=== PATIENT | female | born 1980 | race Caucasian/White ===

== ENCOUNTER 2018-07-10 19:32 | Observation (INO) | payer OTHER ==
[~2018-07-10 19:32] MED LIST: ISOVUE-370 76%-LOCM 1 ML ONE
[2018-07-10] MEDS ORDERED: Morphine 4 MG/ML VIAL ONE ×2 (19:46→20:56)
[2018-07-10] MEDS ORDERED: Ondansetron PF 4 MG/2 ML Vial ONE (19:46)
[2018-07-10 20:10] LABS: #Basophils 0.1 thou/uL (0.0-0.2); #Eosinphils 0.1 thou/uL (0.0-0.7); #Monocytes 0.7 thou/uL (0.11-0.59); #Neutrophils 10.7 thou/uL (1.40-6.50); %Basophils 0.4 % (0.0-1.0); %Eosinophils 0.7 % (0.0-10.0); %Lymphocytes 8.2 % (21.0-51.0); %Monocytes 5.4 % (0.0-10.0); %Neutrophils 85.3 % (42.0-75.0); Hemoglobin 13.5 g/dL (12.0-16.0); Mean Corpuscular HGB CONC 34.1 g/dL (32.0-36.0); Mean Corpuscular Volume 93.8 fL (78.0-98.0); Mean Platelet Volume 8.7 fL (7.4-10.4); Platelet Count 220 thou/uL (130-400); RBC Distribution Width 10.8 % (11.5-14.5); Red Blood Cell (RBC) Count 4.21 mill/uL (4.20-5.40); White Blood Cell (WBC) Count 12.5 thou/uL (4.8-10.8)
[2018-07-10 20:17] LABS: BHCG - Serum Negative (NEGATIVE); Pregs Control Background? CLEAR/WHITE (CLR/WHITE); Pregs Control Bar Appear? YES (CONTROL BAR)
[2018-07-10 20:31] LABS: ALT (SGPT) 21 U/L (8-55); AST (SGOT) 22 U/L (5-34); Albumin 4.7 g/dL (3.5-5.0); Alkaline Phosphatase 69 U/L (40-150); Anion Gap 16 mmol/L (10-20); BUN (Urea Nitrogen) 10 mg/dL (7.0-18.7); Bilirubin, Total 0.3 mg/dL (0.2-1.2); Calc. Creatinine Clearance 0 mL/min (70-130); Calcium 9.5 mg/dL (7.8-10.44); Carbon Dioxide 25 mmol/L (22-29); Chloride 101 mmol/L (98-107); Estimated GFR-MDRD 82; Globulin 2.8 g/dL (2.4-3.5); Glucose 95 mg/dL (70-105); Lipase 21 U/L (8-78); Potassium 3.5 mmol/L (3.5-5.1); Protein, Total 7.5 g/dL (6.0-8.3); Sodium 138 mmol/L (136-145)
[2018-07-10 20:54] LABS: Bilirubin Negative (Negative); Blood, Urine Negative (Negative); Clarity CLEAR (Clear); Glucose, Urine (Dipstick) Negative (Negative); Leukocyte Negative (Negative); Nitrite Negative (Negative); Protein, Urine (Dipstick) Negative (Neg-Trace); Specific Gravity, Urine 1.024 (1.002-1.036); Urobilinogen 0.2 mg/dL (0.2-1.0); pH, Urine 6.5 (5.0-9.0)
[2018-07-10] MEDS ORDERED: Ketorolac Tromethamine 30 MG/ML VIAL ONE (21:24)
[2018-07-10] MEDS ORDERED: MEROPENEM 1 GM/50 ML 1 GM in Premix Bag 1 BAG IVPB SCH (22:30)
[2018-07-10 22:31] LABS: INR-International Normal Ratio 0.9; PTT 33.7 SEC (22.9-36.1); Prothrombin Time 12.3 SEC (12.0-14.7)
--- NOTE | 2018-07-10 22:34 | CT ---
CONTRAST ENHANCED CT IMAGES OF THE ABDOMEN AND PELVIS: Technique: IV contrast was given. Unfortunately oral contrast was not given. This significantly decre ases the sensitivity for detection of pathology. History: Right lower quadrant which began at 4:30 today. FINDINGS: The lung bases are unremarkable. The gallbladder has been surgically removed. No evidence of free intraperitoneal air is seen. The liver and spleen are unremarkable. The pancreas is unremarkable. Adrenal glands and kidneys are u nremarkable. No dilated loops of bowel seen. The appendix is not definitively visualized. There may be a distended tubular structure partially jacinto led with Pepto Bismol or other hyperdense GI content. I cannot exclude the possibility of a distended appendix. A normal appendix is not visualized. The rest of the colon demonstrates no evidence of obs truction. IMPRESSION: The appendix definitely is not visualized. There is a possible distended tubular structure which may represent appendicitis. Correlate with clinical exam. POS: [facility]
--- NOTE | 2018-07-10 23:34 | RAD ---
AP CHEST: History: Pre-operative chest radiograph. FINDINGS: AP chest demonstrates the lungs to be well aerated. No evidence of active intrathoracic disease seen. No evidence of effusions, pneumonia, or pneumothorax is seen. IMPRESSION: Unremarkable AP view chest. POS: [facility]
--- NOTE | 2018-07-10 23:36 | ULT ---
PELVIC ULTRASOUND: History: Severe right lower quadrant pain. Technique: Multiple longitudinal and transverse images of the pelvis obtained using a multihertz endo vaginal transducer. FINDINGS: Real-time, color flow, and spectral waveform doppler analysis demonstrates the uterus to measure 7.3 x 4.4 x 4.9 cm. No definite evidence of uterine masses seen. Both ovaries visualized with good blood flow. Right ovary measures 3.1 x 2.0 x 1.8 cm and the left ov ese 3.1 x 1.5 x 2.9 cm. Bilateral ovarian cysts seen. The largest being the left ovarian cyst measuri ng 1.1 x 0.8 x 1.4 cm. IMPRESSION: 1. Bilateral small ovarian cysts. 2. No evidence of ovarian torsion. POS: [facility]
[2018-07-10] MEDS ORDERED: Ondansetron PF 4 MG/2 ML Vial IVP PRN (23:47)
[2018-07-10] MEDS ORDERED: Ondansetron ODT 4 MG TAB SL PRN (23:47)
[2018-07-10] MEDS ORDERED: Morphine 4 MG/ML VIAL SLOW IVP PRN (23:48)
[2018-07-11] MEDS: Morphine 4 MG/ML VIAL SLOW IVP PRN ×6 (00:02→23:38)
[2018-07-11] MEDS: Acetaminophen 1,000 MG in Premix Bag 1 BAG IVPB PRN ×3 (00:12→11:32)
[2018-07-11] MEDS: Sodium Chloride 0.9% 1,000 ML IV SCH ×2 (00:12→05:51)
[2018-07-11 00:46] VITALS: BMI 21.0
[2018-07-11] MEDS: Ketorolac Tromethamine 30 MG/ML VIAL IVP SCH ×4 (02:02→21:36)
[2018-07-11] MEDS ORDERED: PROPOFOL 200 MG/20 ML VIAL ONE (09:48)
[2018-07-11] MEDS ORDERED: Rocuronium Bromide 10 MG/ML (10ML VIAL) ONE (09:48)
[2018-07-11] MEDS ORDERED: Glycopyrrolate 0.2 MG/ML 5 ML SYRINGE ONE (09:48)
[2018-07-11] MEDS ORDERED: Lidocaine 1% PF 5 ML VIAL ONE (09:48)
[2018-07-11] MEDS ORDERED: Dexamethasone 20 MG/5 ML VIAL ONE (09:48)
[2018-07-11] MEDS ORDERED: Ondansetron PF 4 MG/2 ML Vial ONE (09:48)
[2018-07-11] MEDS ORDERED: Succinylcholine Chloride 20 MG/ML 10 ml SYRINGE FS ONE (09:48)
[2018-07-11 10:25] LABS: Hemoglobin 11.5 g/dL (12.0-16.0); Mean Corpuscular HGB CONC 33.4 g/dL (32.0-36.0); Mean Corpuscular Hemoglobin 32.1 pg (27.0-31.0); Mean Corpuscular Volume 96.1 fL (78.0-98.0); Mean Platelet Volume 8.8 fL (7.4-10.4); Platelet Count 163 thou/uL (130-400); RBC Distribution Width 10.9 % (11.5-14.5); White Blood Cell (WBC) Count 20.3 thou/uL (4.8-10.8)
[2018-07-11 10:32] LABS: Band 23 % (5-11); Lymphocytes 6 % (21-51); MDiff Complete? YES; Metamyelocyte 1 % (0-0); Monocytes 7 % (0-10); Neutrophil 62 % (42-75); Platelet Morphology Comment Appears Adequate; Promyelocytes 1 % (0-0)
[2018-07-11] MEDS ORDERED: Morphine 4 MG/ML VIAL SLOW IVP PRN (11:53)
--- NOTE | 2018-07-11 13:01 | HP ---
CHIEF COMPLAINT: Abdominal pain with leukocytosis and fever. HISTORY OF PRESENT ILLNESS: The patient is a 38-year-old white female. She notes that yesterday she began to develop abdominal pain. She had vomiting associated with this. The pain worsened and seemed to be primarily periumbilical, but more to the right side of the umbilicus. She presented to the emergency room, where she underwent radiologic and laboratory evaluation. CT scan and pelvic ultrasound was obtained as well as a chest x-ray. The chest x-ray was clear. The pelvic ultrasound revealed bilateral small ovarian cysts without evidence of torsion. CT scan was performed with only IV contrast. The appendix was not definitely visualized, but her anatomy in relatively thin habitus would potentially make this difficult to discern. It was felt to potentially be a distended tubular structure that could be the appendix. Laboratory studies revealed that her urinalysis is unremarkable. Her white blood cell count is elevated at 12.5 with a left shift. Hemoglobin is 13.5. Chemistry profile is entirely normal. test is negative. She denies diarrhea. She denies vaginal discharge. PAST MEDICAL HISTORY: Negative. PAST SURGICAL HISTORY: She had a laparoscopic cholecystectomy in 2013. MEDICATIONS: She takes no prescription medications. ALLERGIES: NO KNOWN DRUG ALLERGIES. PRIMARY CARE PHYSICIAN: Dr. Rodriguez. PERSONAL AND SOCIAL HISTORY: She is single with one child. She has also a grandmother. She formally smoked but now uses an electronic cigarette. She drinks alcohol rarely. 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 REVIEW OF SYSTEMS: Otherwise, unremarkable. FAMILY HISTORY: Noncontributory. PHYSICAL EXAMINATION: VITAL SIGNS: Her temperature overnight was as high as 101.6, pulse is 83 to 99, and blood pressure is 100/64. GENERAL: She is a well-developed, well-nourished, pleasant, thin white female, in no acute distress. She tells me that Toradol helps significantly with her discomfort. She is alert and oriented x3. HEAD, EYES, EARS, NOSE, AND THROAT: Unremarkable. NECK: Supple without mass or tenderness. LUNGS: Clear to auscultation throughout. CARDIAC: Regular rate and rhythm without murmur. ABDOMEN: Soft with normoactive bowel sounds. She has diffuse tenderness that seems to be more prominent periumbilical and in the right lower abdomen. She has early guarding signs. She was not tested for rebound. EXTREMITIES: Unremarkable. ASSESSMENT AND PLAN: The patient with findings potentially concerning for appendicitis. This is by no means a definitive diagnosis. Given her pain and leukocytosis and potentially abnormal CT scan, I believe that a laparoscopy is appropriate. I would perform a laparoscopic appendectomy at that time and evaluate to see if there is any other source of her discomfort. I have discussed all this in detail with the patient as well as potential risks. She understands and agrees to proceed with surgery at this time. Job ID: [id number]
[2018-07-11] MEDS ORDERED: Bupivacaine/Epinephrine 0.25% 30 ML VIAL ONE (13:21)
[2018-07-11] MEDS ORDERED: Fentanyl 100 MCG/2 ML VIAL ONE ×4 (13:53→15:34)
[2018-07-11] MEDS ORDERED: cefOXitin Sodium/Dextrose,Iso 1 GM in Premix Bag 50 BAG IVPB SCH (14:15)
[2018-07-11] MEDS ORDERED: SUGAMMADEX SODIUM 200 MG/2 ML VIAL ONE (14:52)
[2018-07-11] MEDS ORDERED: Meperidine HCl/PF 25 MG/ML VIAL ONE (15:10)
[2018-07-11] MEDS ORDERED: Promethazine HCl 25 MG/ML VIAL SLOW IVP PRN (15:14)
[2018-07-11] MEDS ORDERED: Ondansetron HCl/PF 4 MG/2 ML Vial IVP PRN (15:14)
[2018-07-11] MEDS ORDERED: Meperidine HCl/PF 25 MG/ML VIAL SLOW IVP PRN (15:14)
[2018-07-11] MEDS ORDERED: Promethazine HCl 25 MG/ML VIAL IM PRN (15:14)
[2018-07-11] MEDS: Piperacillin/Tazobactam 3.375 GM in Sodium Chloride 0.9% 100 ML IVPB SCH ×2 (17:37→23:28)
[2018-07-12] MEDS: Ketorolac Tromethamine 30 MG/ML VIAL IVP SCH ×2 (03:30→08:43)
[2018-07-12] MEDS: Morphine 4 MG/ML VIAL SLOW IVP PRN ×3 (03:31→09:57)
[2018-07-12] MEDS: Piperacillin/Tazobactam 3.375 GM in Sodium Chloride 0.9% 100 ML IVPB SCH ×2 (05:52→13:58)
[2018-07-12 07:37] LABS: #Lymphocytes 0.8 thou/uL (1.20-3.40); #Monocytes 0.5 thou/uL (0.11-0.59); #Neutrophils 13.2 thou/uL (1.40-6.50); %Eosinophils 0.1 % (0.0-10.0); %Lymphocytes 5.5 % (21.0-51.0); %Monocytes 3.4 % (0.0-10.0); Hemoglobin 10.7 g/dL (12.0-16.0); Mean Corpuscular HGB CONC 33.7 g/dL (32.0-36.0); Mean Corpuscular Hemoglobin 32.3 pg (27.0-31.0); Mean Corpuscular Volume 95.8 fL (78.0-98.0); Mean Platelet Volume 9.5 fL (7.4-10.4); Platelet Count 161 thou/uL (130-400); RBC Distribution Width 10.9 % (11.5-14.5); Red Blood Cell (RBC) Count 3.31 mill/uL (4.20-5.40); White Blood Cell (WBC) Count 14.6 thou/uL (4.8-10.8)
[2018-07-12] MEDS ORDERED: HYDROcodone/Acetaminophen 10/325 mg Tablet PO SCH (11:15)
[2018-07-12 11:43] VITALS: BP 125/80; TEMP 98
--- NOTE | 2018-07-14 03:18 | OP ---
DATE OF PROCEDURE: 07/11/2018 PREOPERATIVE DIAGNOSIS: Acute appendicitis. POSTOPERATIVE DIAGNOSIS: Acute appendicitis. OPERATION PERFORMED: Laparoscopic appendectomy. ANESTHESIA: General endotracheal. INDICATIONS: The patient is a 38-year-old white female. She presented to the hospital with findings potentially consistent with appendicitis. She had atypical radiologic findings and an atypical examination. I felt that she had a concerning intraabdominal process and I recommended laparoscopy with planned laparoscopic appendectomy. DESCRIPTION OF OPERATION: Informed consent was obtained. The patient was taken to the operating where general endotracheal anesthesia was obtained with the patient in supine position. Abdomen was prepped with ChloraPrep and draped in sterile fashion. Local anesthetic was infiltrated using 0.25% Marcaine with epinephrine. A 5 mm infraumbilical incision was created through which a Veress needle was passed in the peritoneal cavity and pneumoperitoneum was established with carbon dioxide up to a pressure of 15 mmHg. A 5 mm trocar port was passed through this same incision. Laparoscopic camera was passed through this port. Under direct vision, 2 additional ports were placed, including a 5 mm left lower quadrant port and a 12 mm suprapubic port. It was noted that the patient's right colon and cecum extended well down into the pelvis. Initially, the appendix nor the base of the cecum could be visualized. With the patient in Trendelenburg position, I was able to see that the patient had a gangrenous appendix that was deep within the pelvis. I was able to mobilize the cecum out of the pelvis and eventually was able to grasp the appendix. It had been adherent to the uterus, but it did not appear to be perforated. The mesoappendix was grasped and taken down using electrocautery so as to expose the base of the appendix. Unfortunately, there appeared to be ischemic changes with thickening induration extending to the base of the appendix. I did not feel that this was amenable to Endoloop closure. I therefore obtained the Ali Molina stapler and using the white load, I passed this across the base of the appendix to include a normal cuff of cecum. The staple was fired and the staple line was inspected and found to be intact. The appendix was placed in a specimen retrieval sac. The sac was removed through the 12 mm port. The fascia was then closed with 0 Vicryl suture using a GraNee needle. The pelvis and right lower quadrant were thoroughly irrigated. All irrigant was aspirated. All ports and instruments were removed under direct vision. Pneumoperitoneum was carefully evacuated. Additional local anesthetic was infiltrated at each port site. Skin edges approximated with 4-0 Monocryl subcuticular suture. Dermabond was placed externally. There were no complications. The patient tolerated the procedure well and was taken to recovery in stable condition. Job ID: [id number]
--- NOTE | 2018-07-16 18:20 | EKG ---
Test Reason : Blood Pressure : / mmHG Vent. Rate : 085 BPM Atrial Rate : 085 BPM P-R Int : 144 ms QRS Dur : 092 ms QT Int : 370 ms P-R-T Axes : 081 076 065 degrees QTc Int : 440 ms Normal sinus rhythm Normal ECG Confirmed by LILIANA BELLO, JERED Stanley ([id number]), social media editor ROSSANA ÁLVAREZ ([id number]) on 07/16/2018 6:20:34 PM Referred By: Confirmed By:JERED FORD MD
== END 2018-07-12 13:35 | disposition home or self-care (01) ==
LOC: ERS 19:32 → SURG A 22:26
PROVIDERS: ADMIT Specialist; ATTEND Specialist
PROC: 0DTJ4ZZ Resection of Appendix, Percutaneous Endoscopic Approach (ICD-10-PCS; principal; 2018-07-12)
DX: K35.80 Unspecified acute appendicitis (principal); N83.202 Unspecified ovarian cyst, left side; N83.201 Unspecified ovarian cyst, right side; F17.290 Nicotine dependence, other tobacco product, uncomplicated; Z88.8 Allergy status to other drugs, medicaments and biological substances
CPT/HCPCS: 36415; 71045; 74177; 76856; 80053; 81003; 83690; 84703; 85025; 85610; 85730; 86850; 86900; 86901; 87086; 88304; 93005; 96361; 96365; 96366; 96374; 96375; 96376; G0378; J0131; J0694; J1100; J1885; J2001; J2175; J2185; J2270; J2405; J2543; J2704; J3010; J7050; Q9966